=== PATIENT | male | born 1960 | race Caucasian/White ===

== ENCOUNTER 2022-07-11 09:45 | Outpatient (CLI) | payer OTHER, SELFPAY | END 2022-07-11 09:46 | disposition home or self-care (01) | LOC: OP CLINIC 09:47 | PROVIDERS: PCP Family Medicine; Visit Provider Internal Medicine | DX: Z12.11 Encounter for screening for malignant neoplasm of colon (principal); K63.5 Polyp of colon; Z86.010 Personal history of colon polyps | CPT/HCPCS: 45380; 45385; J2250; J2405; J3010 ==

== ENCOUNTER 2022-09-21 23:45 | Emergency (ER) | payer OTHER, SELFPAY ==
[2022-09-21 23:50] VITALS: BP 138/87; PULSE 64; RESP 18; TEMP 36.3; O2SAT 97; BMI 24.4
[2022-09-22 00:20] VITALS: O2SAT 96
[2022-09-22 00:34] LABS: Basophils Absolute Auto 0.03 K/uL (0.00-0.30); Basophils Percent Auto 0.5 % (0.0-3.0); Eosinophils Percent Auto 6.2 % (0.0-7.0); Hematocrit 41.5 % (37.0-53.0); Immature Granulocytes Abs Auto 0.01 K/uL (0.00-0.30); Immature Granulocytes Pct Auto 0.2 %; Lymphocytes Absolute Auto 2.02 K/uL (0.90-2.90); Lymphocytes Percent Auto 31.2 % (20-44); Mean Corpuscular HGB Conc 34 gm/dL (32-36); Mean Corpuscular Hemoglobin 33 pg (26-34); Mean Corpuscular Volume 96 fL (80-100); Neutrophils Absolute Auto 3.37 K/uL (1.7-7.0); Neutrophils Percent Auto 51.9 % (42.0-72.0); Platelet Count* 225 K/uL (140-440); RDW Coefficient of Variation % 12.4 % (11.5-15.5); Red Blood Count 4.31 m/uL (4.30-5.90); White Blood Count* 6.48 K/uL (4.50-11.00)
[2022-09-22 00:42] LABS: Slide Review Reflex No
[2022-09-22 00:47] VITALS: BP 129/91; BP 133/79; BP 134/83; PULSE 67; PULSE 76; PULSE 79
[2022-09-22] MEDS: 0.9 % SODIUM CHLORIDE 1000 ml 1,000 ML IV (01:05)
[2022-09-22 01:15] LABS: Chloride* 108 mmol/L (96-114); Sodium* 140 mmol/L (135-149)
[2022-09-22 01:16] LABS: Potassium* 3.5 mmol/L (3.6-5.1)
[2022-09-22 01:18] LABS: Creatinine* 0.9 mg/dL (0.5-1.5); Estimated Glomerular Filt Rate 98 ml/min
[2022-09-22 01:19] LABS: Blood Urea Nitrogen* 19 mg/dL (7-30); Calcium* 8.8 mg/dL (8.4-10.6); Carbon Dioxide* 22 mmol/L (20-32); Ethanol* 0.01 % (0.01-0.03); Glucose* 103 mg/dL (60-115)
[2022-09-22 01:32] LABS: NT Pro B Type NatriureticPept* 34 pg/mL; Troponin I* < 0.01 ng/mL (0.01-0.04)
[2022-09-22 01:48] LABS: Troponin, Point-of-Care* 0.01 ng/ml (0.01-0.04)
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
[2022-09-22 02:01] VITALS: BP 134/89; PULSE 82; RESP 16; O2SAT 98
== END 2022-09-22 02:11 | disposition home or self-care (01) ==
PROVIDERS: Emergency Provider Family Medicine; PCP Family Medicine
DX: R55 Syncope and collapse (principal)
CPT/HCPCS: 36415; 80048; 82077; 83880; 84484; 85025; 93005; 94761; 99284; A0425; A0427; J7030

== ENCOUNTER 2022-12-05 07:49 | Outpatient (CLI) | payer OTHER, SELFPAY ==
--- NOTE | 2022-12-05 08:00 | CRLHL7_ITS ---
For Patients: As a result of the Cures Act, medical imaging exams and procedure reports are released immediately into your electronic medical record. You may view this report before your referring provider. If you have questions, please contact your health care provider. Indication: LEFT ELBOW OLECRANON BURSITIS Technique: Left elbow 3 views Comparison: None Findings: Bones: Alignment is normal. No fractures or bone lesions. Joint spaces: Mild degenerative changes at the ulnohumeral joint. No joint effusion. Soft tissues: Diffuse soft tissue swelling posterior to the canal. Impression: Olecranon bursitis. No synovitis or fracture. Dictated by Zheng Yu MD @ 12/05/2022 10:30:59 AM (Electronically Signed)
== END 2022-12-05 07:50 | disposition home or self-care (01) ==
LOC: RAD 07:50
PROVIDERS: PCP Family Medicine
DX: M70.22 Olecranon bursitis, left elbow (principal)
CPT/HCPCS: 73080

== ENCOUNTER 2023-08-10 08:03 | Outpatient (CLI) | payer OTHER, SELFPAY ==
--- OUTSIDE RECORDS SUMMARY | 2023-08-10 08:05 | XMS_ITS | Patient Health Record ---
Author Name Unknown Organization [facility] Address [address] [place] [address] [address] [place] [address] Care Team Providers Care Siebel Solution Architect Name Role Phone [email or web address] Primary Care Provider Zachary Hurst Unavailable [phone] Doug Ash Unavailable [phone] ALLERGIES No Known Allergies REASON FOR REFERRAL Reason Please evaluate and treat for left elbow pain. Please call pt. to schedule at [phone]. Diagnosis 1 Olecranon bursitis, left elbow (M70.22) Referral Organization [facility] Referring Provider First Name Doug Referring Provider Last Name Mihir Referring Provider Speciality Physician Frame Changer Referred Provider [facility] [place] 2[place] Referred Provider Specialty Orthopedic S urgery General Notes Dayna Chavira 023 12:43:40 PM >Please call the patient to schedule and fax back all notes to [phone]. If you need additional records for this referral, please call [phone]. Thanks! Referral Priority Routine Reason Evaluate and treat m id-low back pain with physical therapy. Order printed and given to patient Diagnosis 1 Low back pain (M54.5 0) Referral Organization [facility] Referring Provider First Name Doug Referring Provider Last Name Mihir Referring Provider Speciality Physician Frame Changer Referred Provider Specialty Physical The rapist General Notes Dayna Chavira 023 10:59:17 AM >Please call the patient to schedule and fax back all notes to [phone]. If you need additional records for this referral, please call [phone]. Thanks! Referral Priority Routine MEDICATIONS Medication SIG (Take, Route, Frequency, Duration) Notes Start Date End Date Status Medical Cannabis Act niyah HYDROcodone-Acetaminophen 7.5-325 MG 1 tablet Orally prn, severe pain Active hydrOXYzine HCl 25 MG Oral for 8 Days Not-Taking methylPREDNISolone 4 MG Oral for 6 Days Not-Taking Cyclobenzaprine HCl 5 MG Oral for 7 Days Not-Taking SOCIAL HISTORY Tobacco Use: Social History Observation Description Date Details (start date - stop date) Never Smoker NA - NA Sex Assigned At : Social History Observation Description Sex Assigned At Unknown Tobacco Use/Smoking: Question Answer Notes Are you a nonsmoker Alcohol Screen Question Answer Notes Did you have a drink containing alcohol in the p ast year? 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) Active confirmed Thoracic spondylosis without myelopathy (130911649) Problem Radiculopathy, thoracic region (M54.14) Active confirmed Thoracic radiculopathy (48819588) Problem Cervicalgia (M54.2) Active confirmed Cervicalgia (34552224) Problem Olecranon bursitis, left elbow (M70.22) Active confirmed Inflammation of bursa of olecranon (085005148) Problem Low back pain (M54.50) Active confirmed Low back pain (473219489) VITAL SIGNS Blood pressure diastolic 90 mm Hg 03/11/2023 Height 6ft in 03/11/2023 Blood pressure systolic 122 mm Hg 03/11/2023 Weight 180 lbs 03/11/2023 BMI 24.41 kg/m2 03/11/2023 PROCEDURES Procedure Date Ordered Date Performed Result Body Sit e Intervention: 12/04/2022 02/06/2023 sched 02/17 Encounters Encounter Location Date Provider Diagnosis [facility] [address] [place] [id number] 11/19/2022 Zachary Luis [facility] [address] [place] [address] 12/10/2022 Zachary Luis [facility] [address] [place] [address] 02/12/2023 Zachary Luis 104 [facility] [address] [place] [address] 12/04/2022 Zachary Luis Olecranon bursitis, left elbow M70.22 ; Spondylosis without myelopathy or radiculopathy, thoracic region M47.814 ; Low back pain M54.50 ; Cervicalgia M54.2 and Other chronic pain G89.29 104 [facility] [address] [place] [id number] 03/11/2023 Doug Ash Spondylosis without myelopathy or radiculopathy, thoracic region M47.814 ; Low back pain M54.50 ; Cervicalgia M54.2 and Other chronic pain G89.29 104 [facility] [address] [facility] [address] [address] 02/17/2023 Zachary Luis Radiculopathy, thoracic region M54.14 ASSESSMENTS Encounter Date Diagnosis Assessment Notes Treatment Notes Treatment Clinical Notes 12/04/2022 Spondylosis without myelopathy or radiculopathy, thoracic region (ICD-10 - M47.814) 12/04/2022 Olecranon bursitis, left elbow (ICD-10 - M70.22) 02/17/2023 Radiculopathy, thoracic region (ICD-10 - M54.14) 03/11/2023 Spondylosis without myelopathy or radiculopathy, thoracic region (ICD-10 - M47.814) 03/11/2023 Low back pain (ICD-10 - M54.50) 03/11/2023 Cervicalgia (ICD-10 - M54.2) 12/04/2022 Low back pain (ICD-10 - M54.50) 12/04/2022 Cervicalgia (ICD-10 - M54.2) 03/11/2023 Other chronic pain (ICD-10 - G89.29) Zachary presents to the clinic for an evaluation regarding his chronic neck, low back, and left elbow pain. I have reviewed the [facility] database and did not find any inconsistencies. We discussed his current symptoms and medications. I have sent a referral for physical therapy for his mid-low back pain per patient request (order printed and given to patient). He will plan to start PT after he returns from travelling in 2 months. On 02/17/2023, he received a T4-5 TESI and reports 60% relief. I will consider repeating this injection in the future when his pain returns to baseline. I will continue with a treatment plan consisting of conservative therapy at this time. This treatment plan was reviewed with Zachary, and he was agreeable. I will continue to monitor his progress and he will follow up as needed. Discharge instructions reviewed verbally. The patient was instructed to return to the office as scheduled and call with any questions, problems or concerns. 12/04/2022 Other chronic pain (ICD-10 - G89.29) Zachary presents to the clinic for an evaluation regarding his chronic neck, low back, and left elbow pain. I have reviewed his symptoms and current medications as well as his most recent imaging. I checked the [facility] database and I did not find any inconsistencies. I will continue with a treatment plan consisting of conservative therapy at this time. I will order a left elbow XR at [facility] for further evaluation of his elbow symptoms. Additonally, I will refer him to [facility] for further treatment. Regarding his mid back pain, I will order a T4-5 TESI. This procedure was explained to Zachary and he expresses interest in continuing. I will also consider physical therapy in the future. This treatment plan was reviewed with Zachary, and he was agreeable. He will return as needed for further evaluation. I will continue to monitor his progress, adjusting his treatment plan as needed. Plan:1. Reviewed thoracic MRI2. Order Left elbow XR at [facility]3. Referral to [facility]4. Order T4-5 TESI5. Consider physical therapy6. Follow up as needed. Discharge instructions reviewed verbally. The patient was instructed to return to the office as scheduled and call with any questions, problems or concerns. 12/04/2022 Other Alexnader, Daniel Bey , am serving as a scribe to document services personally performed by Doug Ash PA-C, based upon my observations and the provider's statements to me. All documentation has been reviewed by the aforementioned CHASE as well as Zachary Luis MD, prior to being entered into the official medical record. I, Zachary Luis MD attest that the above named individual is acting in scribe capacity, has observed Doug Ash's performance of the services and has documented them in accordance with her direction. The documentation recorded by the scribe accurately reflects the service Doug Ash PA-C and Zachary Luis MD personally performed and the decisions made by them. 03/11/2023 Other I, Zeina Brady , am serving as a scribe to document services personally performed by Doug Ash PA-C, based upon my observations and the provider's statements to me. All documentation has been reviewed by the aforementioned CHASE. I, Doug Ash PA-C, attest that the above named individual is acting in scribe capacity, has observed my performance of the services and has documented them in accordance with my direction. The documentation recorded by the scribe accurately reflects the service I personally performed and the decisions made during the clinic visit. PLAN OF TREATMENT Pending Test Test Name Order Date X ray 12/04/2022 Insurance Providers Payer Name Payer Address Payer Phone Subscriber Number Group Number Insured Name Patient Relationship to Insured Coverage Start Date Coverage End Date [employer] [address] [address] [place] [address] [id number] Ani Penny Spouse - patient is the spouse of the insured 3 [employer] [address] [address] [place] [address] [id number] Ani Penny Spouse - patient is the spouse of the insured MEDICAL (GENERAL) HISTORY Surgical History Surgery Date(Month/Year) Medial meniscus surgery on right knee. 1 987 Surgically reconstructed ankles (Bilater ally, Calcaneal osteotomy) 2010, 2017
--- NOTE | 2023-08-10 08:15 | CRLHL7_ITS ---
For Patients: As a result of the Century Cures Act, medical imaging exams and procedure reports are released immediately into your electronic medical record. You may view this report before your referring provider. If you have questions, please contact your health care provider. Indication: Pain. Technique: MRI of the cervical spine was performed without the use of intravenous contrast. Comparison: Cervical spine radiographs 07/16/2023. Findings: The vertebral body heights appear maintained without evidence of fracture. No discrete T1 hypointense marrow infiltrating process. Mild multilevel disc height loss and desiccation. Straightening of the cervical lordosis, with mild reversal apex at C6. There is a 1.7 cm intramuscular lipoma noted within the right posterior paraspinal musculature at the C2-3 level. There is a 1.3 cm T2 hyperintense structure within the left parotid gland. No abnormal cord signal. C2-3: No spinal canal narrowing. Mild to moderate right and mild left neural foraminal narrowing secondary to uncovertebral joint and facet hypertrophy. C3-4: Minimal disc bulge without spinal canal narrowing. Mild to moderate left and mild right neural foraminal narrowing secondary to uncovertebral and facet hypertrophy. C4-5: No spinal canal narrowing. Mild neural foraminal narrowing secondary to uncovertebral and facet hypertrophy. C5-6: Disc osteophyte complex results in mild spinal canal narrowing. Moderate neural foraminal narrowing secondary to uncovertebral and facet hypertrophy. C6-7: Disc osteophyte complex results in mild to moderate spinal canal narrowing. Moderate neural foraminal narrowing secondary to uncovertebral and facet hypertrophy. C7-T1: Mild spinal canal narrowing. Moderate neural foraminal narrowing. Impression: 1. At C3-4, mild to moderate left neural foraminal narrowing. 2. At C5-6, mild spinal canal with moderate neural foraminal narrowing. 3. At C6-7, mild to moderate spinal canal with moderate neural foraminal narrowing. 4. At C7-T1, moderate neural foraminal narrowing. 5. Milder spondylosis at the remaining cervical levels. 6. No abnormal cord signal. 7. Incidental T2 hyperintense lesion within the left parotid gland. Further assessment with ultrasound is recommended. Dictated by Jamshid Yanes MD @ 08/10/2023 10:13:48 AM (Electronically Signed)
--- NOTE | 2023-08-10 09:15 | CRLHL7_ITS ---
For Patients: As a result of the 21st Century Cures Act, medical imaging exams and procedure reports are released immediately into your electronic medical record. You may view this report before your referring provider. If you have questions, please contact your health care provider. HISTORY: Left shoulder pain. TECHNIQUE: Noncontrast MRI of the left shoulder. COMPARISON: Radiographs 07/16/2023. FINDINGS: Rotator cuff: There is high-grade tearing of the distal supraspinatus tendon over its anterior to mid aspect with area of tearing measuring approximately 1.4 cm anterior/posterior by 0.5 cm medial/lateral by stent. The tear extends to the bursal surface of the tendon and also focally approaches the articular surface of the tendon and is therefore near full-thickness to full-thickness in severity. There is underlying supraspinatus tendinosis. No supraspinatus muscle atrophy. No infraspinatus tendon tear or muscle atrophy. Moderate distal subscapularis tendinosis. No high-grade subscapularis tendon tear or muscle atrophy. AC joint and coracoacromial arch: AC joint degenerative arthrosis. There is spurring of the lateral acromion. There is underlying type 2 acromial morphology. No os acromiale. The acromiohumeral interval measures approximately 7 mm. A small amount subacromial-subdeltoid bursal fluid is present. The coracohumeral interval measures 7-8 mm. There is a moderate amount of subcoracoid bursal fluid. Biceps-labral complex: Tendinosis of the proximal long head of biceps tendon. No subluxation or dislocation of tendon from bicipital groove. Fraying of the superior labrum. There is tearing of the anterior-inferior and posterior-inferior glenoid labrum. Glenohumeral joint: The articular surfaces are maintained. No effusion. No malalignment. Bones and soft tissues: No fracture or avascular necrosis. No abnormality within the suprascapular or spinoglenoid notches nor within the quadrilateral space. IMPRESSION: 1. Near full-thickness to full-thickness supraspinatus tendon tearing with underlying tendinosis but no muscle atrophy. 2. Moderate distal subscapularis tendinosis. 3. Degenerative tearing of the anterior-inferior to posterior-inferior glenoid labrum. 4. Tendinosis of the long head of biceps tendon. 5. AC joint degenerative changes. 6. Subacromial spurring. 7. Subacromial-subdeltoid and subcoracoid bursal fluid may relate either to bursitis or to reactive bursal fluid in the setting of rotator cuff tendon tearing. Dictated by Victoriano Mercedes MD @ 08/11/2023 8:21:03 AM (Electronically Signed)
== END 2023-08-10 08:04 | disposition home or self-care (01) ==
LOC: MRI 08:03
PROVIDERS: PCP Family Medicine; Visit Provider Family Medicine
DX: M54.12 Radiculopathy, cervical region (principal); M50.221 Other cervical disc displacement at C4-C5 level; M50.222 Other cervical disc displacement at C5-C6 level; M47.892 Other spondylosis, cervical region; M54.2 Cervicalgia; M25.512 Pain in left shoulder; S43.432A Superior glenoid labrum lesion of left shoulder, initial encounter; S46.011A Strain of muscle(s) and tendon(s) of the rotator cuff of right shoulder, initial encounter
CPT/HCPCS: 72141; 73221

== ENCOUNTER 2023-08-17 14:43 | Outpatient (CLI) | payer OTHER, SELFPAY ==
--- OUTSIDE RECORDS SUMMARY | 2023-08-17 14:45 | XMS_ITS | Patient Health Record ---
Author Name Unknown Organization [facility] Address [address] [place] [address] [address] [place] [address] Care Team Providers Care Dive Superintendent Name Role Phone CharissesunnyalexanderImtiaz Primary Care Provider Zachary Hurst Unavailable [phone] Doug Ash Unavailable [phone] ALLERGIES No Known Allergies REASON FOR REFERRAL Reason Please evaluate and treat for left elbow pain. Please call pt. to schedule at [phone]. Diagnosis 1 Olecranon bursitis, left elbow (M70.22) Referral Organization [facility] Referring Provider First Name Doug Referring Provider Last Name Mihir Referring Provider Speciality Physician Barrel Cutter Referred Provider [facility], Orthopedics Referred Provider Specialty Orthopedic S urgery General Notes Dayna Chavira 023 12:43:40 PM >Please call the patient to schedule and fax back all notes to [phone]. If you need additional records for this referral, please call [phone]. Thanks! Referral Priority Routine Reason Evaluate and treat m id-low back pain with physical therapy. Order printed and given to patient Diagnosis 1 Low back pain (M54.5 0) Referral Organization [facility] Referring Provider First Name Doug Referring Provider Last Name Mihir Referring Provider Speciality Physician Barrel Cutter Referred Provider Specialty Physical The rapist General Notes Dayna Chavira 023 10:59:17 AM >Please call the patient to schedule and fax back all notes to [phone]. If you need additional records for this referral, please call [phone]. Thanks! 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) Active confirmed Thoracic spondylosis without myelopathy (439517144) Problem Radiculopathy, thoracic region (M54.14) Active confirmed Thoracic radiculopathy (72009079) Problem Cervicalgia (M54.2) Active confirmed Cervicalgia (44412035) Problem Olecranon bursitis, left elbow (M70.22) Active confirmed Inflammation of bursa of olecranon (014435086) Problem Low back pain (M54.50) Active confirmed Low back pain (653195688) VITAL SIGNS Blood pressure diastolic 90 mm Hg 03/11/2023 Height 6ft in 03/11/2023 Blood pressure systolic 122 mm Hg 03/11/2023 Weight 180 lbs 03/11/2023 BMI 24.41 kg/m2 03/11/2023 PROCEDURES Procedure Date Ordered Date Performed Result Body Sit e Intervention: 12/04/2022 02/06/2023 sched 02/17 Encounters Encounter Location Date Provider Diagnosis [facility] [address] [place] [id number] 11/19/2022 Zachary Luis [facility] [address] [place] [phone] 12/10/2022 Zachary Luis [facility] [address] [place] [phone] 02/12/2023 Zachary Luis 104 [facility] [address] [facility] [address] [place] [address] 12/04/2022 Zachary Luis Olecranon bursitis, left elbow M70.22 ; Spondylosis without myelopathy or radiculopathy, thoracic region M47.814 ; Low back pain M54.50 ; Cervicalgia M54.2 and Other chronic pain G89.29 104 [facility] [address] [place] [phone] 03/11/2023 Doug Ash Spondylosis without myelopathy or radiculopathy, thoracic region M47.814 ; Low back pain M54.50 ; Cervicalgia M54.2 and Other chronic pain G89.29 104 [facility] [address] [facility] [address] [address] 02/17/2023 Zachary Luis Radiculopathy, thoracic region M54.14 ASSESSMENTS Encounter Date Diagnosis Assessment Notes Treatment Notes Treatment Clinical Notes 12/04/2022 Spondylosis without myelopathy or radiculopathy, thoracic region (ICD-10 - M47.814) 12/04/2022 Olecranon bursitis, left elbow (ICD-10 - M70.22) 03/11/2023 Spondylosis without myelopathy or radiculopathy, thoracic region (ICD-10 - M47.814) 03/11/2023 Low back pain (ICD-10 - M54.50) 02/17/2023 Radiculopathy, thoracic region (ICD-10 - M54.14) 03/11/2023 Cervicalgia (ICD-10 - M54.2) 12/04/2022 Low back pain (ICD-10 - M54.50) 03/11/2023 Other chronic pain (ICD-10 - G89.29) Zachary presents to the clinic for an evaluation regarding his chronic neck, low back, and left elbow pain. I have reviewed the [facility] database and did not find any inconsistencies. [...] with any questions, problems or concerns. 12/04/2022 Cervicalgia (ICD-10 - M54.2) 12/04/2022 Other chronic pain (ICD-10 - G89.29) Zachary presents to the clinic for an evaluation regarding his chronic neck, low back, and left elbow pain. I have reviewed his symptoms and current medications as well as his most recent imaging. I checked the [facility] database and I did not find any inconsistencies. I will continue with a treatment plan consisting of conservative therapy at this time. I will order a left elbow XR at [facility] for further evaluation of his elbow symptoms. Additonally, I will refer him to [facility] for further treatment. Regarding his [...] thoracic MRI2. Order Left elbow XR at [facility]3. Referral to [facility]4. Order T4-5 TESI5. Consider physical therapy6. Follow up as needed. Discharge instructions reviewed verbally. The patient was instructed to return to the office as scheduled and call with any questions, problems or concerns. 12/04/2022 Other Alexander, Daniel Bey , am serving as a [...] Date Coverage End Date [employer] [address] [address] [place] [address] [id number] Ani Penny Spouse - patient is the spouse of the insured 3 [employer] [address] [address] [place] [address] [id number] Ani Penny Spouse - patient is the spouse of the insured MEDICAL (GENERAL) HISTORY Surgical History Surgery Date(Month/Year) Surgically reconstructed ankles (Bilater ally, Calcaneal osteotomy) 2010, 2017 Medial meniscus surgery on right knee. 1 [phone]
--- NOTE | 2023-08-17 15:00 | CRLHL7_ITS ---
For Patients: As a result of the Cures Act, medical imaging exams and procedure reports are released immediately into your electronic medical record. You may view this report before your referring provider. If you have questions, please contact your health care provider. Indication: F/U LT PAROTID LESION SEEN ON MRI Technique: Grayscale and color Doppler ultrasound of the left parotid gland. Comparison: MRI 08/10/23 Findings: Circumscribed anechoic cyst within the left parotid gland with increase through transmission measuring 12 x 11 x 12 millimeters. No abnormal vascularity. Impression: 1.2 cm simple cyst left parotid gland. Dictated by Zheng Yu MD @ 08/19/2023 1:34:42 PM (Electronically Signed)
== END 2023-08-17 14:44 | disposition home or self-care (01) ==
LOC: US 14:43
PROVIDERS: PCP Family Medicine; Visit Provider Family Medicine
DX: K11.8 Other diseases of salivary glands (principal)
CPT/HCPCS: 76536

== ENCOUNTER 2023-09-01 10:51 | Outpatient (CLI) | payer OTHER, SELFPAY ==
--- NOTE | 2023-09-01 11:15 | CRLHL7_ITS ---
For Patients: As a result of the Century Cures Act, medical imaging exams and procedure reports are released immediately into your electronic medical record. You may view this report before your referring provider. If you have questions, please contact your health care provider. ULTRASOUND-GUIDED LEFT PAROTID GLAND BIOPSY CLINICAL HISTORY: Left parotid gland lesion COMPARISON STUDIES: Ultrasound 08/17/2023, MRI 07/2023 TECHNIQUE: Real-time ultrasound with image documentation was used for targeting the left parotid lesion. Core biopsy specimens were obtained using an automated gun with a 18-gauge biopsy needle. CONSENT and TIME OUT: The procedure, risks, and alternatives were explained to the patient and a consent was signed. Seco Protocol was followed including pre-procedure verification that relevant information/documentation was available, reviewed and properly matched to the patient; consent accurate and complete; and equipment and supplies available. Time Out was conducted just prior to starting procedure to verify the four required elements: patient identity, correct side/site marked (if applicable), procedure, relevant images/results properly labeled and displayed (if applicable). PROCEDURE: The patient was positioned supine on the ultrasound table. The left cheek was prepped with ChloraPrep. Three cc of 1 percent lidocaine used for local anesthesia. Core samples were obtained. The specimens were placed in 10% formalin and sent to the pathology department. Pressure was held on the biopsy site until all bleeding subsided. The skin incision was closed with Steri-Strips. LATERALITY: Left parotid gland LESION: Hypoechoic lesion measuring 1.2 cm SUSPICION FOR MALIGNANCY: Medium NUMBER OF SAMPLES: 6 IMPRESSION: Ultrasound-guided left parotid gland lesion biopsy. Dictated by Zheng Yu MD @ 09/01/2023 2:49:02 PM (Electronically Signed)
== END 2023-09-01 10:52 | disposition home or self-care (01) ==
LOC: US 10:51
PROVIDERS: PCP Family Medicine; Visit Provider Otolaryngology
DX: K11.8 Other diseases of salivary glands (principal)
CPT/HCPCS: 20206; 76942; 88305; A4649

== ENCOUNTER 2023-09-09 08:28 | Day surgery (SDC) | payer OTHER, SELFPAY ==
[2023-09-09] VITALS (16 sets, daily range): BP systolic 94–130; BP diastolic 60–95; PULSE 60–80; RESP 13–20; TEMP 36.1–37.2; O2SAT 92–99; BMI 24.4
[2023-09-09] MEDS: LACTATED RINGERS 1000 ML 1,000 ML 100 ML IV (09:00)
[2023-09-09] MEDS: SODIUM CHLORIDE 0.9 % (FLUSH) 10 ML SYRINGE IVF (09:00)
[2023-09-09] MEDS: MIDAZOLAM HCL 1 MG/ML inj IVP (09:28)
[2023-09-09] MEDS: fentaNYL 100 MCG/2 ML inj IVP (09:28)
--- NOTE | 2023-09-09 09:30 | SUR.PREOP ---
TIME?OUT:?927 PT/RN/MDA?VERIFICATION?OF?SURGICAL?SITE,?PROCEDURE,?AND?CONSENT OBTAINED?PRIOR?TO?INVASIVE?PROCEDURE.
--- NOTE | 2023-09-09 09:35 | W.PM.H&PU ---
History & Physical Update History & Physical Update H&P Reviewed and patient assessed: No changes noted
[2023-09-09] MEDS: CEFAZOLIN 2 GM in 0.9 % SODIUM CHLORIDE Mini-bag 100 ML IVPB (09:57)
--- NOTE | 2023-09-09 10:04 | P.NB_ITS ---
Nerve Block Nerve Block Time Seen by Provider: 09:29 Date Seen: 09/09/23 Type of block requested by surgeon for post-operative analgesia: supraclavicular Side: left Time out performed: Yes Verification of patient name: Yes Verification of date of : Yes Site marking: site marked Name of person performing procedure: Koko Continuous monitoring Was continuous monitoring of O2 sat, B/P, air sampling and monitoring, recorded every 15 minutes?: Yes Procedure Checklist: sterile prep, needles and gloves Ultrasound guided. Images saved: Yes Medications given in 5ml increments after negative aspiration: Ropivicaine %: 0.5 mL: 20 Needle gauge: 22 Decadron (mg): 10 Precedex (mcg): 25 Patient tolerated procedure well: Yes Block Charges Block Charge (with Pro Fee): Brachial Plexus Use of Ultrasound Machine for Block: Yes- US Guidance/pain block
--- NOTE | 2023-09-09 10:04 | W.ANESCHARGE ---
Anesthesia Charges Start Date/Time Anesthesia Start Date: 09/09/23 Anesthesia Start Time: 09:37 Stop Date/Time Anesthesia Stop Date: 09/09/23 Anesthesia Stop Time: 11:44
[2023-09-09] MEDS: EPINEPHrine 1 MG in SODIUM CHLORIDE IRRIG SOLUTION 3,000 ML 3001 MG IRRIGATION ×5 (10:25→11:24)
--- NOTE | 2023-09-09 10:30 | W.ANESCHARGE ---
Anesthesia Charges Start Date/Time Anesthesia Start Date: 09/09/23 Anesthesia Start Time: 09:37 Stop Date/Time Anesthesia Stop Date: 09/09/23 Anesthesia Stop Time: 11:44
--- NOTE | 2023-09-09 11:40 | PM.ORPRC ---
Procedure Note Date of procedure: 09/09/23 Procedure: PREOPERATIVE DIAGNOSES: 1. Left shoulder rotator cuff tear. 2. Left shoulder AC joint arthrosis, primary, moderate-severe 3. Left shoulder degenerative labral tearing 4. Left shoulder subacromial impingement syndrome. POSTOPERATIVE DIAGNOSES: 1. Left shoulder rotator cuff tear full-thickness upper border subscapularis and near complete full-thickness supraspinatus 2. Left shoulder AC joint arthrosis, primary, moderate-severe 3. Left shoulder degenerative labral tearing 4. Left shoulder subacromial impingement syndrome. NAME OF OPERATION: 1. Left shoulder arthroscopic rotator cuff repair - full-thickness upper border subscapularis and near complete full-thickness supraspinatus 2. Left shoulder arthroscopic distal clavicle excision 3. Left shoulder arthroscopic limited glenohumeral debridement 4. Left shoulder arthroscopic bursectomy, subacromial decompression/partial acromioplasty. SURGEON: Jesus Cortes MD RIPRAP PLACER: Adithya Lu PA-C. Of note, a skilled hospital clinic assistant was critical for this case to aide in patient positioning, suture manipulation, arm positioning, instrument positioning, and closure. ANESTHESIA: General plus preoperative supraclavicular block. EBL: 25 mL IMPLANTS: Arthrex 4.75 mm BioComposite SwiveLock suture anchor (Tums 1) Arthrex 5.5 mm BioComposite SwiveLock suture anchor (x2); Arthrex 2.6 mm knotless FiberTak RC (x2) COMPLICATIONS: None evident INDICATIONS: The patient is a pleasant, 62-year-old male who has experienced left shoulder pain that has been increasing in recent time. Physical exam and imaging were consistent with a rotator cuff tear. Given their findings, as well as the weakness and pain, and inadequate response to nonoperative management, recommendation was made for surgery. FINDINGS: Exam under anesthesia revealed stable shoulder with excellent range of motion. The diagnostic arthroscopy revealed grade 2 chondromalacia humeral head. Grade 1 glenoid.. The Subscapularis tendon was torn from its upper border with mild-moderate retraction. The long head of the biceps tendon was intact without significant tearing nor hemorrhagic tissue. It remain located in the bicipital groove. The superior rotator cuff tendon was found to be torn full thickness/near full-thickness through majority of the supraspinatus. The infraspinatus appeared to be intact. The labrum was degeneratively frayed in the anterior and superior aspects. No loose bodies were identified within the pouch or subscapularis recess. PROCEDURE: Following a thorough discussion of risks, benefits, and alternatives, consent was obtained and the left shoulder was marked. The patient was brought to the operating room and placed supine on the operating table. Induction of anesthesia was completed after preoperative supraclavicular block was administered in preop holding. Appropriate time out was performed identifying proper patient, site, and procedure. 2 g IV Ancef was administered within 1 hour of incision preoperatively. The left upper extremity was prepped and draped in the appropriate sterile fashion using ChloraPrep prep. This was after the patient was positioned in the beach chair with their head in neutral alignment and all bony prominences well padded. The shoulder was insufflated with 20mL of normal saline via an 18g spinal needle from a posterior approach. An 11 blade skin incision allowed a blunt trochar to be inserted and diagnostic arthroscopy to be performed with the findings as noted above. An anterior portal was established with an outside in technique. This allowed the probe to be inserted and confirm the diagnostic arthroscopic findings. The shaver was then inserted and allowed debridement of the anterior and superior labrum. Following this, the upper border subscapularis was repaired after debriding the lesser tuberosity with the shaver and [place] cautery. Subscapularis was captured in horizontal mattress fashion with a fiber tape suture. The tails were brought to a single anchor in the lesser tuberosity with excellent reapproximation of the subscap tendon and good excursion/tension. Thereafter, the subacromial space was entered. Here, a complete bursectomy and partial acromioplasty/subacromial decompression was performed with a combination of radiofrequency ablator, the shaver, and a 5.5 mm bur. Additionally, distal clavicle excision was performed with the bur. 8 mm of distal clavicle was resected based on the width of our bur. Further inspection of the supraspinatus and infraspinatus rotator cuff was performed. This identified the tear as noted above. The margins of the tear were debrided, and the greater tuberosity was debrided with a combination of the apollo cautery, shaver, and bur on reverse setting. After gentle decortication, a speed bridge configuration with a medial donald was engaged. 2 medial anchors were placed and the sutures were passed with a fiber link. The eyelet suture tails were then retrieved and passed with the knotless mechanism and cinched down for the medial donald purpose. A tail from each of the medial row anchor FiberTapes were then brought to a lateral row anchor along with 1 of the tails from the medial donald. Excellent reapproximation of the tissue to the greater tuberosity was achieved with broad footprint compression. The rotator cuff showed excellent reapproximation of the greater tuberosity with good security upon probing. Prior to anchor local delivery truck driver removal, the eyelet sutures were tugged on for each anchor and found that the anchor had excellent stability within the bone. The shoulder was placed through range of motion and found to be stable. The rotator cuff was re-probed and found to be stable. Instruments were removed. Excess fluid was drained, closure performed with 4-0 Monocryl and Steri-Strips. Dressings were applied. Sling was applied. The patient was awoken from anesthesia and transferred to the PACU in stable condition. A skilled hospital clinic assistant was critical for this case to aid in patient positioning, limb positioning, skill to manipulate arthroscopic instruments and camera, suture management, patient safety, and closure. PLAN: 1. Elbow, forearm, wrist and digit range of motion of operative extremity as tolerated. 2. Encouraged ice. 3. Oxycodone for pain as needed. 4. Sling at all times except for ROM and showering. 5. Follow up with PA visit in 1-2 weeks for wound check. Initiate physical therapy following that visit for passive range of motion. Initiate active assisted range of motion at 5-6 weeks. May do pendulums now.
[2023-09-09] MEDS: LACTATED RINGERS 1000 ML 1,000 ML 35 ML IV (12:10)
--- NOTE | 2023-09-09 12:23 | SUR.PHASEI ---
patient met discharge criteria per anesthesia
== END 2023-09-09 13:40 | disposition home or self-care (01) ==
LOC: OR 08:28
PROVIDERS: PCP Family Medicine; Visit Provider Orthopaedic Surgery Sports Medicine
PROC: (CPT 29805; principal; 2023-09-09 10:00)
DX: M75.102 Unspecified rotator cuff tear or rupture of left shoulder, not specified as traumatic (principal); M19.012 Primary osteoarthritis, left shoulder; S43.432A Superior glenoid labrum lesion of left shoulder, initial encounter; M75.42 Impingement syndrome of left shoulder; G89.18 Other acute postprocedural pain
CPT/HCPCS: 29827; 29826; 29824; 29822; 01630; 64415; 76942; C1713; J0171; J0330; J0690; J1100; J2250; J2704; J2795; J3010; J7120; L3670

== ENCOUNTER 2023-11-17 09:17 | Outpatient (CLI) | payer BC, SELFPAY | END 2023-11-17 09:18 | disposition home or self-care (01) | LOC: NFLDREF 11-27 09:44 | PROVIDERS: PCP Family Medicine; Referring Provider Family Medicine; Visit Provider Family Medicine | DX: E78.5 Hyperlipidemia, unspecified (principal); Z12.5 Encounter for screening for malignant neoplasm of prostate; Z13.1 Encounter for screening for diabetes mellitus | CPT/HCPCS: 80061; 82947; G0103 ==

== ENCOUNTER 2025-03-29 07:54 | Outpatient (CLI) | payer BC, SELFPAY | END 2025-03-29 07:55 | disposition home or self-care (01) | PROVIDERS: PCP Family Medicine; Visit Provider Family Medicine | DX: E78.5 Hyperlipidemia, unspecified (principal) | CPT/HCPCS: 80053; 80061 ==